=== PATIENT | female | born 1985 | race Caucasian/White ===

== ENCOUNTER 2018-01-14 02:07 | Emergency (ER) | payer OTHER ==
[~2018-01-14] VITALS: Ht 167.6 cm; Wt 71.8 kg
[~2018-01-14 02:07] MED LIST: BUPR150T6 PO; ETHI1TAB16 PO; MILK200C4 PO; MULT-785 PO; ONDA4TAB59 PO; SYN0.1T PO
[2018-01-14] MEDS ORDERED: ketorolac trometh. 30mg/ml inj. IV ONE (02:50)
[2018-01-14] MEDS ORDERED: normal saline 1000ML IV soln IVB ONE ×2 (02:50)
[2018-01-14] MEDS ORDERED: HYDROmorphone inj. 0.5 MG/0.5 ML DISP.SYRIN IV PRN (02:50)
[2018-01-14] MEDS ORDERED: ondansetron/PF 4mg/2ml inj IV ONE ×2 (02:50)
[2018-01-14 02:51] LABS: CLARITY,URINE CLOUDY (Clear); COLOR,URINE YELLOW (Yellow); GLUCOSE, URINE NEGATIVE (Neg); KETONES,URINE TRACE mg/dl (Neg); LEUKOCYTE ESTERASE ,URINE NEGATIVE (Neg); NITRITES, URINE NEGATIVE (Neg); OCCULT BLOOD,URINE LARGE (Neg); PROTEIN,URINE 100 mg/dl (Neg); URINE HCG NEGATIVE (NEG)
[2018-01-14 02:54] LABS: UA COLLECTION TYPE CLN CATCH MIDSTREAM
[2018-01-14 02:58] LABS: CAL OXALATE CRYSTALS FEW /HPF (NEGATIVE); RBC,URINE TNTC /HPF (0-2)
[2018-01-14 02:59] LABS: BACTERIA,URINE 3+ /HPF (Neg)
[2018-01-14 03:00] LABS: MUCUS STRANDS MANY /LPF (Neg); SQUAMOUS EPITHELIAL CELL,UR MANY /LPF (FEW)
[2018-01-14] MEDS ORDERED: morphine 4 MG/ML inj SYRINge IV ONE (03:05)
[2018-01-14 03:11] LABS: BASOPHILS % (AUTO) 0.3 % (0-1); EOSINOPHILS # (AUTO) 0.1 X10'3 (0-0.9); EOSINOPHILS % (AUTO) 0.8 % (0-6); HEMATOCRIT 40.7 % (35.0-45.0); HEMOGLOBIN 14.4 g/dl (12.0-16.0); LYMPHOCYTES # (AUTO) 1.7 X10'3 (1.1-4.8); LYMPHOCYTES % (AUTO) 20.9 % (21-51); MEAN CORPUSCULAR HEMOGLOBIN 30.9 PG (27.0-31.0); MEAN CORPUSCULAR HGB CONC 35.3 % (33.0-36.5); MEAN CORPUSCULAR VOLUME 87.6 FL (78-98); MEAN PLATELET VOLUME 7.7 FL (7.4-10.4); MONOCYTES # (AUTO) 0.4 X10'3 (0-0.9); MONOCYTES % (AUTO) 4.7 % (2-12); NEUTROPHILS # (AUTO) 5.8 X10'3 (1.8-7.7); NEUTROPHILS % (AUTO) 73.3 % (42-75); PLATELET COUNT 239 X10'3 (140-440); RED BLOOD COUNT 4.64 X10'6 (4.20-5.60); RED CELL DISTRIBUTION WIDTH 13.4 % (11.5-14.5)
[2018-01-14 03:24] LABS: ALANINE AMINOTRANSFERASE 22 U/L (12-78); ALBUMIN/GLOBULIN RATIO 1.2 (1.1-1.5); ALKALINE PHOSPHATASE 62 IU/L (46-116); ANION GAP 11 (8-16); ASPARTATE AMINO TRANSFERASE 12 U/L (10-37); BILIRUBIN,TOTAL 0.4 MG/DL (0.1-1.0); BLOOD UREA NITROGEN 10 MG/DL (7-18); BUN/CREATININE RATIO 9.8 (6.6-38.0); CALCIUM 9.3 MG/DL (8.5-10.1); CHLORIDE 105 MMOL/L (99-107); CREATININE 1.02 MG/DL (0.40-0.90); GLUCOSE 133 MG/DL (70-104); LIPASE 106 U/L (73-393); POTASSIUM 3.6 MMOL/L (3.5-5.1); SODIUM 143 MMOL/L (135-145); TOTAL CARBON DIOXIDE 26.6 MMOL/L (24-32); TOTAL PROTEIN 7.3 G/DL (6.4-8.2); eGFR 62 ML/MIN
[2018-01-14] MEDS ORDERED: HYDR-565 PO (03:44)
[2018-01-14] MEDS ORDERED: ONDA4TAB9 SL (03:44)
[2018-01-14] MEDS ORDERED: FLO0.4C PO (03:44)
[2018-01-14] MEDS ORDERED: KETO10TA2 PO (03:44)
[2018-01-14 04:10] VITALS: BP 141/112
== END 2018-01-14 04:12 | disposition home or self-care (01) ==
LOC: ER 02:07
DX: N13.2 Hydronephrosis with renal and ureteral calculous obstruction (principal); F15.10 Other stimulant abuse, uncomplicated; E11.9 Type 2 diabetes mellitus without complications; E03.9 Hypothyroidism, unspecified; Z88.0 Allergy status to penicillin; Z79.899 Other long term (current) drug therapy
CPT/HCPCS: 36415; 74176; 80053; 81001; 81025; 83690; 85025; 96361; 96374; 96375; 99285; J1885; J2270; J2405; J7030

== ENCOUNTER 2018-10-03 17:43 | Emergency (ER) | payer OTHER ==
[~2018-10-03] VITALS: Ht 165.1 cm; Wt 72.7 kg
[~2018-10-03 17:43] MED LIST changes: +KETO10TA2 PO
[2018-10-03] MEDS ORDERED: HYDROcodone/acetaminophen 10/325mg tab PO ONE (19:35)
[2018-10-03 19:44] LABS: CLARITY,URINE CLEAR (Clear); COLOR,URINE YELLOW (Yellow); GLUCOSE, URINE NEGATIVE (Neg); KETONES,URINE TRACE mg/dl (Neg); LEUKOCYTE ESTERASE ,URINE NEGATIVE (Neg); NITRITES, URINE NEGATIVE (Neg); OCCULT BLOOD,URINE NEGATIVE (Neg); PROTEIN,URINE NEGATIVE (Neg); UROBILINOGEN,URINE 0.2 E.U/dL (0.2-1.0)
[2018-10-03 19:48] LABS: URINE HCG NEGATIVE (NEG)
[2018-10-03 19:55] LABS: UA COLLECTION TYPE CLN CATCH MIDSTREAM
[2018-10-03 20:00] VITALS: BP 117/76
[2018-10-03] MEDS ORDERED: HYDR-3965 PO (21:30)
== END 2018-10-03 21:33 | disposition home or self-care (01) ==
LOC: ER 17:44
DX: R10.30 Lower abdominal pain, unspecified (principal); R51 Headache; R10.2 Pelvic and perineal pain; E11.9 Type 2 diabetes mellitus without complications; E03.9 Hypothyroidism, unspecified; F15.90 Other stimulant use, unspecified, uncomplicated; Z88.0 Allergy status to penicillin; Z79.899 Other long term (current) drug therapy; Z90.49 Acquired absence of other specified parts of digestive tract; Z87.440 Personal history of urinary (tract) infections
CPT/HCPCS: 76830; 76856; 81003; 81025; 99284

== ENCOUNTER 2019-08-26 10:10 | Emergency (ER) | payer OTHER ==
[~2019-08-26] VITALS: Ht 165.1 cm; Wt 77.3 kg
[2019-08-26] MEDS ORDERED: diphenhydrAMINE 25mg capsule PO ONE (10:15)
[2019-08-26] MEDS ORDERED: OLANZapine **IM** 10 mg inj. IM ONE (10:15)
[2019-08-26] MEDS ORDERED: LORazepam 2 mg/ml vial IM ONE (10:15)
--- NOTE | 2019-08-26 10:44 | NUR ---
MOTHER DAVID BRONSON [phone]
[2019-08-26] MEDS ORDERED: OLANZapine 2.5MG tablet PO STA ×2 (10:51→11:26)
[2019-08-26 10:54] LABS: CLARITY,URINE SLIGHTLY CLOUDY (Clear); COLOR,URINE YELLOW (Yellow); GLUCOSE, URINE NEGATIVE (Neg); KETONES,URINE TRACE mg/dl (Neg); LEUKOCYTE ESTERASE ,URINE NEGATIVE (Neg); NITRITES, URINE NEGATIVE (Neg); OCCULT BLOOD,URINE NEGATIVE (Neg); PROTEIN,URINE 30 mg/dl (Neg); URINE HCG NEGATIVE (NEG); UROBILINOGEN,URINE 0.2 E.U/dL (0.2-1.0)
[2019-08-26 10:54] LABS: BASOPHILS % (AUTO) 0.3 % (0-1); EOSINOPHILS % (AUTO) 0.3 % (0-6); HEMOGLOBIN 15.1 g/dl (12.0-16.0); LYMPHOCYTES # (AUTO) 1.4 X10'3 (1.1-4.8); LYMPHOCYTES % (AUTO) 21.7 % (21-51); MEAN CORPUSCULAR HEMOGLOBIN 30.7 PG (27.0-31.0); MEAN CORPUSCULAR HGB CONC 34.2 g/dL (33.0-36.5); MEAN CORPUSCULAR VOLUME 89.6 FL (78-98); MEAN PLATELET VOLUME 7.6 FL (7.4-10.4); MONOCYTES # (AUTO) 0.5 X10'3 (0-0.9); MONOCYTES % (AUTO) 7.8 % (2-12); NEUTROPHILS # (AUTO) 4.5 X10'3 (1.8-7.7); NEUTROPHILS % (AUTO) 69.9 % (42-75); PLATELET COUNT 298 X10'3 (140-440); RED BLOOD COUNT 4.91 X10'6 (4.20-5.60); RED CELL DISTRIBUTION WIDTH 13.7 % (11.5-14.5); WHITE BLOOD COUNT 6.4 X10'3 (4.5-11.0)
[2019-08-26] MEDS ORDERED: LORazepam 1 MG tablet PO ONE (10:55)
--- NOTE | 2019-08-26 10:55 | NUR ---
Mother and patient arguing in room. Mother was advised that if they argue again that her mother will be asked to leave
[2019-08-26 10:56] LABS: UA COLLECTION TYPE CLN CATCH MIDSTREAM
[2019-08-26 10:59] LABS: SQUAMOUS EPITHELIAL CELL,UR MANY /LPF (FEW)
[2019-08-26 11:00] LABS: BACTERIA,URINE 1+ /HPF (Neg); MUCUS STRANDS MANY /LPF (Neg); RBC,URINE 0-2 /HPF (0-2); WBC,URINE 0-4 /HPF (0-4)
--- NOTE | 2019-08-26 11:00 | NUR ---
PATIENTS BELONGINGS WHICH CONSISTED OF CLOTHES ONLY: SHORTS,SHIRT, BRA, UNDERWEAR AND SHOES GIVEN TO MOTHER
[2019-08-26 11:06] LABS: ALANINE AMINOTRANSFERASE 30 U/L (12-78); ALBUMIN 4.5 G/DL (3.4-5.0); ALBUMIN/GLOBULIN RATIO 1.2 (1.1-1.5); ALKALINE PHOSPHATASE 74 IU/L (46-116); ANION GAP 10 (8-16); ASPARTATE AMINO TRANSFERASE 21 U/L (10-37); BILIRUBIN,TOTAL 0.5 MG/DL (0.1-1.0); BLOOD UREA NITROGEN 17 MG/DL (7-18); CALCIUM 10.1 MG/DL (8.5-10.1); CHLORIDE 103 MMOL/L (99-107); GLUCOSE 127 MG/DL (70-104); POTASSIUM 3.7 MMOL/L (3.5-5.1); SODIUM 143 MMOL/L (135-145); TOTAL CARBON DIOXIDE 29.9 MMOL/L (24-32); TOTAL PROTEIN 8.3 G/DL (6.4-8.2); eGFR 63 ML/MIN
[2019-08-26 11:15] LABS: URINE AMPHETAMINE SCREEN POSITIVE (Neg); URINE BARBITUATE SCREEN NEGATIVE (Neg); URINE BENZODIAZEPINES SCREEN NEGATIVE (Neg); URINE CANNABINOID SCREEN NEGATIVE (Neg); URINE COCAINE SCREEN NEGATIVE (Neg); URINE METHADONE SCREEN NEGATIVE (Neg); URINE OPIATE SCREEN NEGATIVE (Neg); URINE PHENCYCLIDINE SCREEN NEGATIVE (Neg)
[2019-08-26 11:16] LABS: ETHANOL < 0.010 GM/DL (0.0-0.010)
--- NOTE | 2019-08-26 11:37 | NUR ---
pharmacist states they will cancel second order of zyprexa, given already by MICHELL Harper.
[2019-08-26] MEDS ORDERED: BREX2TAB PO (11:38)
[2019-08-26] MEDS ORDERED: METF-436 PO (11:39)
[2019-08-26] MEDS ORDERED: levoTHYROXINE 100mcg tablet PO STA (11:40)
[2019-08-26] MEDS ORDERED: DIVA-81 PO (11:40)
[2019-08-26] MEDS ORDERED: QUET400T5 PO (11:41)
[2019-08-26] MEDS ORDERED: QUET50TA15 PO (11:41)
[2019-08-26] MEDS ORDERED: CLON0.1T PO (11:41)
[2019-08-26] MEDS ORDERED: PRAZ2CAP2 PO (11:42)
[2019-08-26] MEDS ORDERED: DESV100T PO (11:50)
[2019-08-26] MEDS ORDERED: CHLO25CA10 PO ×2 (11:50→11:54)
[2019-08-26] MEDS ORDERED: LAMO200T2 PO (11:56)
[2019-08-26] MEDS ORDERED: LAMO100T89 PO (11:56)
[2019-08-26] MEDS ORDERED: DEXT30CA6 PO (11:57)
[2019-08-26] MEDS ORDERED: DEXT20TA6 PO (11:58)
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
--- NOTE | 2019-08-26 12:02 | NUR ---
SPOKE TO [facility] ON [address] AND CONFIRMED MEDICATIONS AND ENETERED THEM IN THE MEDICATION RECONCILIATION PATIENT GETS HER MEDICATIONS FROM [facility] ON [address] WHICH IS CLOSED
--- NOTE | 2019-08-26 12:04 | NUR ---
mother Nataliia [phone] Brother is Caesar [phone]
--- NOTE | 2019-08-26 12:07 | NUR ---
Pt is bipolar and has been a pt of Dr Yee 4 years. She was inpatient in for 4 months. She sees Samreen Naranjo at Dr. Yee. Recently finished intensive outpatient program in June.
--- NOTE | 2019-08-26 12:24 | NUR ---
medication list faxed to pharmacy after dr cannon signed it, primary rn elenita informed
[2019-08-26] MEDS ORDERED: CHLO5CAP3 PO (12:30)
[2019-08-26] MEDS ORDERED: [UNRECOGNIZED DRUG - OTHER] PO SCH (12:30)
[2019-08-26] MEDS ORDERED: DEXTROAMPHETAMINE PO SCH (12:30)
[2019-08-26] MEDS ORDERED: AMPHETAMINE PO SCH (12:30)
[2019-08-26] MEDS ORDERED: dextroamphetamine/amphetamine 10mg tablet PO SCH (12:43)
[2019-08-26] MEDS ORDERED: dextroamphetamine/amphetamine 5mg tablet PO SCH ×2 (12:51→13:00)
[2019-08-26] MEDS ORDERED: venlafaxine 25mg tablet PO SCH (13:00)
--- NOTE | 2019-08-26 13:17 | NUR ---
Pt is asleep and in no apparent distress. Respirations aare even and unlabored
[2019-08-26 14:37] VITALS: BP 132/86
[2019-08-26] MEDS ORDERED: chlordiazePOXIDE 5mg capsule PO SCH (20:00)
[2019-08-26] MEDS ORDERED: metFORMIN 500mg tablet PO SCH (20:00)
[2019-08-26] MEDS ORDERED: prazosin 1mg capsule PO SCH (21:00)
[2019-08-26] MEDS ORDERED: QUETIAPINE 50 MG TAB.SR.24H PO SCH (21:00)
[2019-08-26] MEDS ORDERED: cloNIDine 0.1 mg tablet PO SCH (21:00)
[2019-08-26] MEDS ORDERED: lamoTRIgine 100mg tablet PO SCH (21:00)
[2019-08-26] MEDS ORDERED: QUETIAPINE 200 MG TAB.SR.24H PO SCH (21:00)
[2019-08-26] MEDS ORDERED: divalproex sod 250mg ER (24-hour) tablet PO SCH (21:00)
[2019-08-27] MEDS ORDERED: levoTHYROXINE 100mcg tablet PO SCH (07:00)
[2019-08-27] MEDS ORDERED: brexpiprazole 0.25mg tablet PO SCH (08:00)
[2019-08-27] MEDS ORDERED: lamoTRIgine 100mg tablet PO SCH (08:00)
[2019-08-27] MEDS ORDERED: multivitamins, therapeutics tablet PO SCH (08:00)
[2019-08-27] MEDS ORDERED: dextroamphetam/amphetam ER cap 15 MG CAP.ER.24H PO SCH (08:00)
[2019-08-27] MEDS ORDERED: dextroamphetamine/amphetamine 5mg tablet PO SCH (12:30)
== END 2019-08-26 14:50 | disposition home or self-care (01) ==
LOC: ER 10:10
DX: F20.0 Paranoid schizophrenia (principal); F15.10 Other stimulant abuse, uncomplicated; E11.9 Type 2 diabetes mellitus without complications; E03.9 Hypothyroidism, unspecified; F41.9 Anxiety disorder, unspecified; F31.9 Bipolar disorder, unspecified; F17.200 Nicotine dependence, unspecified, uncomplicated; Z90.49 Acquired absence of other specified parts of digestive tract; Z88.0 Allergy status to penicillin; Z79.84 Long term (current) use of oral hypoglycemic drugs; Z79.899 Other long term (current) drug therapy
CPT/HCPCS: 36415; 80053; 80305; 80320; 81001; 81025; 82948; 84443; 85025; 99285; Q0163; 90654

== ENCOUNTER 2019-08-26 14:48 | Inpatient (IN) | payer OTHER ==
[~2019-08-26] VITALS: Ht 165.1 cm; Wt 76.7 kg
[~2019-08-26 14:48] MED LIST changes: +BREX2TAB PO; +CHLO25CA10 PO; +CHLO5CAP3 PO; +CLON0.1T PO; +DESV100T PO; +DEXT20TA6 PO; +DEXT30CA6 PO; +DIVA-81 PO; +LAMO100T PO; +LAMO200T2 PO; +METF-436 PO; +PRAZ2CAP2 PO; +QUET400T5 PO; +QUET50TA15 PO
[2019-08-26] MEDS ORDERED: mag hydrox/Alum hydrox/simeth 30ml oral suspension PO PRN (15:20)
[2019-08-26] MEDS ORDERED: magnesium hydroxide 30ml (MOM) UD suspension PO PRN (15:20)
[2019-08-26] MEDS: nicotine 21mg patch - 24 hr TD SCH (15:20)
[2019-08-26] MEDS ORDERED: NICOTINE POLACRILEX 2 MG LOZENGE MM PRN (15:20)
[2019-08-26] MEDS ORDERED: acetaminophen 325mg tablet PO PRN ×2 (15:20)
[2019-08-26] MEDS ORDERED: loperamide 2mg capsule PO PRN (15:20)
[2019-08-26] MEDS: hydrOXYzine 25 MG tablet PO PRN (15:42)
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
[2019-08-26 16:18] VITALS: BP 136/86
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
[2019-08-26 20:09] VITALS: BP 130/88
[2019-08-26] MEDS: LORazepam 1 MG tablet PO PRN (20:20)
[2019-08-26] MEDS ORDERED: quetiapine 100mg tablet PO ONE (20:20)
[2019-08-26] MEDS ORDERED: QUEtiapine 25mg tablet PO ONE (20:25)
[2019-08-26] MEDS: prazosin 1mg capsule PO SCH (20:26)
[2019-08-26] MEDS: venlafaxine 25mg tablet PO SCH (20:26)
[2019-08-26] MEDS: metFORMIN 500mg tablet PO SCH (20:27)
[2019-08-26] MEDS: lamoTRIgine 100mg tablet PO SCH (20:27)
[2019-08-26] MEDS: divalproex sod 250mg ER (24-hour) tablet PO SCH (20:27)
[2019-08-26] MEDS: QUETIAPINE 400 MG PO SCH (20:43)
[2019-08-26] MEDS: QUETIAPINE 50 MG PO SCH (20:44)
[2019-08-26] MEDS ORDERED: cloNIDine 0.1 mg tablet PO SCH (21:00)
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
[2019-08-27] MEDS: nicotine 21mg patch - 24 hr TD SCH (08:00)
[2019-08-27] MEDS: BREXPIPRAZOLE 0.5 MG PO SCH (08:00)
[2019-08-27] MEDS ORDERED: brexpiprazole 0.25mg tablet PO SCH (08:00)
[2019-08-27 08:09] VITALS: BP 99/57
[2019-08-27] MEDS: metFORMIN 500mg tablet PO SCH ×2 (08:15→20:23)
[2019-08-27] MEDS: multivitamins, therapeutics tablet PO SCH (08:15)
[2019-08-27] MEDS: lamoTRIgine 100mg tablet PO SCH ×2 (08:15→20:24)
[2019-08-27] MEDS: venlafaxine 25mg tablet PO SCH ×3 (08:16→20:25)
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
[2019-08-27 19:39] VITALS: BP 110/72
[2019-08-27] MEDS: divalproex sod 250mg ER (24-hour) tablet PO SCH (20:23)
[2019-08-27] MEDS: prazosin 1mg capsule PO SCH (20:25)
[2019-08-27] MEDS: QUETIAPINE 400 MG PO SCH (20:59)
[2019-08-27] MEDS: QUETIAPINE 50 MG PO SCH (21:00)
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
[2019-08-28] MEDS: levoTHYROXINE 25mcg tablet PO SCH (07:05)
[2019-08-28 07:40] LABS: CHOLESTEROL 124 MG/DL (0-200); HDL CHOLESTEROL 61 MG/DL (35-60); LDL CHOLESTEROL 57 MG/DL (50-100); TRIGLYCERIDES 45 MG/DL (20-135)
[2019-08-28] MEDS: multivitamins, therapeutics tablet PO SCH (07:49)
[2019-08-28] MEDS: lamoTRIgine 100mg tablet PO SCH ×2 (07:49→20:57)
[2019-08-28] MEDS: venlafaxine 25mg tablet PO SCH ×2 (07:49→13:05)
[2019-08-28] MEDS: metFORMIN 500mg tablet PO SCH ×2 (07:49→20:47)
[2019-08-28 07:52] VITALS: BP 95/60
[2019-08-28] MEDS: nicotine 21mg patch - 24 hr TD SCH (08:00)
[2019-08-28] MEDS: BREXPIPRAZOLE 0.5 MG PO SCH (08:00)
[2019-08-28] MEDS ORDERED: QUET300T19 PO (13:38)
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
[2019-08-28 19:45] VITALS: BP 110/73
[2019-08-28] MEDS: QUETIAPINE 400 MG PO SCH (20:45)
[2019-08-28] MEDS: prazosin 1mg capsule PO SCH (20:47)
[2019-08-28] MEDS: divalproex sod 250mg ER (24-hour) tablet PO SCH (21:05)
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
[2019-08-29] MEDS: levoTHYROXINE 25mcg tablet PO SCH (06:56)
[2019-08-29 07:30] VITALS: BP 100/62
[2019-08-29] MEDS: lamoTRIgine 100mg tablet PO SCH (07:55)
[2019-08-29] MEDS: metFORMIN 500mg tablet PO SCH ×2 (07:55→20:14)
[2019-08-29] MEDS: multivitamins, therapeutics tablet PO SCH (07:56)
[2019-08-29] MEDS: nicotine 21mg patch - 24 hr TD SCH (08:00)
[2019-08-29] MEDS ORDERED: BREXPIPRAZOLE 0.5 MG PO SCH (08:00)
[2019-08-29] MEDS ORDERED: divalproex sod 250mg ER (24-hour) tablet PO SCH ×2 (08:30→21:00)
[2019-08-29] MEDS: docusate sod 100mg capsule PO PRN (12:17)
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
[2019-08-29 20:11] VITALS: BP 131/81
[2019-08-29] MEDS: prazosin 1mg capsule PO SCH (20:14)
[2019-08-29] MEDS: lamoTRIgine 25mg tablet PO SCH (20:14)
[2019-08-29] MEDS: BREXPIPRAZOLE 0.5 MG PO SCH (20:17)
[2019-08-29] MEDS: QUETIAPINE 400 MG PO SCH (20:23)
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
[2019-08-30] MEDS: LORazepam 1 MG tablet PO PRN (00:23)
[2019-08-30] MEDS: metFORMIN 500mg tablet PO SCH ×2 (07:37→21:10)
[2019-08-30] MEDS: levoTHYROXINE 25mcg tablet PO SCH (07:37)
[2019-08-30] MEDS: multivitamins, therapeutics tablet PO SCH (07:37)
[2019-08-30] MEDS: lamoTRIgine 25mg tablet PO SCH ×2 (07:37→21:10)
[2019-08-30] MEDS: nicotine 21mg patch - 24 hr TD SCH (07:45)
[2019-08-30 07:57] VITALS: BP 98/57
[2019-08-30] MEDS: docusate sod 100mg capsule PO PRN (12:41)
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
[2019-08-30 20:00] VITALS: BP 122/72
[2019-08-30] MEDS: BREXPIPRAZOLE 0.5 MG PO SCH (21:11)
[2019-08-30] MEDS: prazosin 1mg capsule PO SCH (21:11)
[2019-08-31] MEDS: hydrOXYzine 25 MG tablet PO PRN (00:15)
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
[2019-08-31] MEDS: LORazepam 1 MG tablet PO PRN ×2 (00:50→18:55)
--- NOTE | 2019-08-31 02:17 | NUR ---
Nursing Note: Pt. awoke with a scream and c/o sleep paralysis, she refuses any intervention at this time and reports she would like to return back to sleep. Will continue to monitor.
[2019-08-31] MEDS: levoTHYROXINE 25mcg tablet PO SCH (07:36)
[2019-08-31] MEDS: metFORMIN 500mg tablet PO SCH ×2 (07:36→21:37)
[2019-08-31] MEDS: multivitamins, therapeutics tablet PO SCH (07:36)
[2019-08-31] MEDS: lamoTRIgine 25mg tablet PO SCH ×2 (07:37→21:36)
[2019-08-31 08:00] VITALS: BP 107/67
[2019-08-31] MEDS: nicotine 21mg patch - 24 hr TD SCH (08:00)
--- NOTE | 2019-08-31 11:25 | NUR ---
Initial: Patient's appetite appears to be fair. At times refuses meals and other times will eat 100% of the meal. When admitted, refused first six meals given, ate 100% of the next, then began alternating between refusals and eating the meal. Patient is also having snacks in between meals from the nourishment room, and will continue to be offered. Will continue to follow patient. Recommend: 1. continue carb controlled diet. 2. continue bowel care 3. weight per rx 4. encourage PO Intake Addendum: 08/31/19 at [address] Amended: Links added.
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
[2019-08-31 20:00] VITALS: BP 111/66
[2019-08-31] MEDS ORDERED: TYPE IN GENERIC & BRAND NAME OF PATIENT MED STRENGTH & FORM PO SCH (21:00)
[2019-08-31] MEDS: prazosin 1mg capsule PO SCH (21:36)
[2019-08-31] MEDS: BREXPIPRAZOLE 0.5 MG PO SCH (21:37)
[2019-08-31] MEDS: zolpidem 5mg tablet PO PRN (21:37)
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
[2019-09-01] MEDS: levoTHYROXINE 25mcg tablet PO SCH (07:37)
[2019-09-01] MEDS: lamoTRIgine 25mg tablet PO SCH ×2 (07:37→20:40)
[2019-09-01] MEDS: metFORMIN 500mg tablet PO SCH ×2 (07:37→20:40)
[2019-09-01] MEDS: multivitamins, therapeutics tablet PO SCH (07:37)
[2019-09-01] MEDS: nicotine 21mg patch - 24 hr TD SCH (08:00)
[2019-09-01 08:06] VITALS: BP 106/66
[2019-09-01] MEDS: LORazepam 1 MG tablet PO PRN ×2 (12:00→20:51)
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
[2019-09-01 19:47] VITALS: BP 124/74
[2019-09-01] MEDS: prazosin 1mg capsule PO SCH (20:40)
[2019-09-01] MEDS: zolpidem 5mg tablet PO PRN (20:40)
[2019-09-01] MEDS: BREXPIPRAZOLE 0.5 MG PO SCH (20:41)
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
[2019-09-02 07:00] VITALS: BP 103/67
[2019-09-02] MEDS: nicotine 21mg patch - 24 hr TD SCH ×2 (08:00→08:02)
[2019-09-02] MEDS: levoTHYROXINE 25mcg tablet PO SCH (08:02)
[2019-09-02] MEDS: lamoTRIgine 25mg tablet PO SCH ×2 (08:02→20:33)
[2019-09-02] MEDS: metFORMIN 500mg tablet PO SCH ×2 (08:02→20:32)
[2019-09-02] MEDS: multivitamins, therapeutics tablet PO SCH (08:02)
[2019-09-02] MEDS: LORazepam 1 MG tablet PO PRN ×2 (12:53→20:32)
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
[2019-09-02 19:00] VITALS: BP 131/89
[2019-09-02] MEDS: zolpidem 5mg tablet PO PRN (20:32)
[2019-09-02] MEDS: prazosin 1mg capsule PO SCH (20:32)
[2019-09-02] MEDS: BREXPIPRAZOLE 0.5 MG PO SCH (21:51)
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
[2019-09-03] MEDS: multivitamins, therapeutics tablet PO SCH (07:38)
[2019-09-03] MEDS: levoTHYROXINE 25mcg tablet PO SCH (07:38)
[2019-09-03] MEDS: lamoTRIgine 25mg tablet PO SCH ×2 (07:38→20:24)
[2019-09-03] MEDS: metFORMIN 500mg tablet PO SCH ×2 (07:38→20:23)
[2019-09-03 07:57] VITALS: BP 113/72
[2019-09-03] MEDS: nicotine 21mg patch - 24 hr TD SCH (08:00)
[2019-09-03] MEDS: LORazepam 1 MG tablet PO PRN ×2 (13:08→20:23)
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
[2019-09-03 19:11] VITALS: BP 119/90
[2019-09-03] MEDS: zolpidem 5mg tablet PO PRN (20:23)
[2019-09-03] MEDS: prazosin 1mg capsule PO SCH (20:24)
[2019-09-03] MEDS ORDERED: TYPE IN GENERIC & BRAND NAME OF PATIENT MED STRENGTH & FORM PO SCH (21:00)
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
[2019-09-04] MEDS: nicotine 21mg patch - 24 hr TD SCH ×2 (07:36→07:45)
[2019-09-04] MEDS: metFORMIN 500mg tablet PO SCH ×2 (07:36→20:25)
[2019-09-04] MEDS: multivitamins, therapeutics tablet PO SCH (07:36)
[2019-09-04] MEDS: lamoTRIgine 25mg tablet PO SCH ×2 (07:36→20:25)
[2019-09-04] MEDS: levoTHYROXINE 25mcg tablet PO SCH (07:40)
[2019-09-04 08:00] VITALS: BP 111/75
--- NOTE | 2019-09-04 14:44 | NUR ---
reassessment: Pt PO 75% avg regular diet meeting needs; does fluctuate w/ some 0% but mostly 75-100% meals. LBM 09/03. No nutrition concerns at this time. Will continue to monitor. Recommend: 1. continue carb controlled diet 2. continue bowel care 3. weight per rx 4. encourage PO Intake Addendum: 09/04/19 at [address] Amended: Links added.
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
[2019-09-04 19:43] VITALS: BP 155/95
[2019-09-04] MEDS ORDERED: BREX0.5T PO (19:43)
[2019-09-04] MEDS: LORazepam 1 MG tablet PO PRN (19:48)
[2019-09-04] MEDS: zolpidem 5mg tablet PO PRN (20:25)
[2019-09-04] MEDS: prazosin 1mg capsule PO SCH (20:25)
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
[2019-09-04] MEDS ORDERED: LORazepam 1 MG tablet PO PRN (22:00)
[2019-09-05 08:00] VITALS: BP 128/75
[2019-09-05] MEDS: nicotine 21mg patch - 24 hr TD SCH (08:00)
[2019-09-05] MEDS: levoTHYROXINE 25mcg tablet PO SCH (08:05)
[2019-09-05] MEDS: lamoTRIgine 25mg tablet PO SCH (08:05)
[2019-09-05] MEDS: metFORMIN 500mg tablet PO SCH (08:05)
[2019-09-05] MEDS: multivitamins, therapeutics tablet PO SCH (08:05)
--- NOTE | 2019-09-05 08:11 | NUR ---
SS met w/pt this am and engaged her in discussion to finalize dcp. per discussion, pt reports that she will be losing her apartment this week but that her mother is ok with her going to her mother's place and pt is agreeable to this. She reports that her mother is currently caring for her 11 y/o son and her dog and pt is eager to resume caring for her son. SS informed EMILIA Villareal of pt's final dcp. Plan: TERRI to coordinate aftercare with pt's outpt psychiatric provider, Dr. Yee office. Radha Hodge [facility]#[id number] Addendum: 09/05/19 at 0816 by Radha MURRAY Amended: Links added.
--- NOTE | 2019-09-05 08:52 | NUR ---
SS had t/c w/Dr. Yee' appointment desk, per t/c pt's scheduled to see Dr. Mckeon on 09/11 @ 2:30 PM. Med rec can be fax to [phone]. Radha Hodge [facility]#[id number] Addendum: 09/05/19 at 0854 by Radha MURRAY Amended: Links added.
[2019-09-05 11:40] VITALS: BP 146/107
[2019-09-05] MEDS ORDERED: ibuprofen 200mg tablet PO ONE (11:40)
[2019-09-05] MEDS ORDERED: LAMO25TA5 PO (13:53)
[2019-09-05] MEDS ORDERED: PRAZ1CAP5 PO (13:53)
[2019-09-05] MEDS ORDERED: LEVO25TA7 PO (13:53)
[2019-09-05] MEDS ORDERED: NICO-687 TD (13:53)
[2019-09-05] MEDS ORDERED: BREX0.5T PO (13:53)
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
--- NOTE | 2019-09-05 15:25 | NUR ---
DISCHARGE NOTE: Pt discharged home with mom, ambulated off the unit accompanied by PCT, all belongings returned, discharge instructions, follow up care, and Rx's explained to pt, pt expressed understanding. Pt given signed paper prescriptions to take to the pharmacy of her choice.
== END 2019-09-05 15:25 | disposition home or self-care (01) | DRG 885 ==
LOC: ADULT MH 14:54
PROVIDERS: ADMIT Psychiatry & Neurology Psychiatry; ATTEND Psychiatry & Neurology Psychiatry
DX: F25.0 Schizoaffective disorder, bipolar type (principal); F15.20 Other stimulant dependence, uncomplicated; F33.2 Major depressive disorder, recurrent severe without psychotic features; E03.9 Hypothyroidism, unspecified; E11.9 Type 2 diabetes mellitus without complications; F12.90 Cannabis use, unspecified, uncomplicated; M54.9 Dorsalgia, unspecified; F17.210 Nicotine dependence, cigarettes, uncomplicated; Z60.2 Problems related to living alone; G89.29 Other chronic pain; Z79.84 Long term (current) use of oral hypoglycemic drugs; Z79.890 Hormone replacement therapy; Z87.442 Personal history of urinary calculi; Z79.899 Other long term (current) drug therapy; Z88.0 Allergy status to penicillin
CPT/HCPCS: 36415; 80061; 82948; 83036; 87081; 90654; Z7610

== ENCOUNTER 2020-08-29 20:00 | Emergency (ER) | payer OTHER ==
[~2020-08-29] VITALS: Ht 165.1 cm; Wt 81.8 kg
[~2020-08-29 20:00] MED LIST changes: +BREX0.5T PO; -BREX2TAB PO; -BUPR150T6 PO; -CHLO25CA10 PO; -CHLO5CAP3 PO; -CLON0.1T PO; -DESV100T PO; -DEXT20TA6 PO; -DEXT30CA6 PO; -DIVA-81 PO; -ETHI1TAB16 PO; -KETO10TA2 PO; -LAMO100T PO; -LAMO200T2 PO; +LAMO25TA5 PO; +LEVO25TA7 PO; -MILK200C4 PO; +NICO-687 TD; -ONDA4TAB59 PO; +PRAZ1CAP5 PO; -PRAZ2CAP2 PO; -QUET400T5 PO; -QUET50TA15 PO; -SYN0.1T PO
--- NOTE | 2020-08-29 20:22 | NUR ---
PT RECEIVED TO ER OVERFLOW BED 22 FROM MAIN ER. PATIENT WAS ACCOMPANIED BY [employer] AFTER BEING PLACED ON A 5150. PT CHANGED INTO GREEN SCRUBS WITHOUT ISSUE. PT VERY TEARFUL AND UPSET REQUESTING MEDICATIONS TO HELP "PUT ME TO SLEEP".
[2020-08-29 20:39] LABS: CLARITY,URINE CLEAR (Clear); COLOR,URINE YELLOW (Yellow); GLUCOSE, URINE NEGATIVE (Neg); KETONES,URINE TRACE mg/dl (Neg); LEUKOCYTE ESTERASE ,URINE NEGATIVE (Neg); NITRITES, URINE NEGATIVE (Neg); OCCULT BLOOD,URINE LARGE (Neg); PH,URINE 5.5 (4.8-8.0); PROTEIN,URINE 30 mg/dl (Neg); URINE HCG NEGATIVE (NEG); UROBILINOGEN,URINE 0.2 E.U/dL (0.2-1.0)
[2020-08-29 20:44] LABS: UA COLLECTION TYPE CLN CATCH MIDSTREAM
[2020-08-29 20:47] LABS: BACTERIA,URINE 2+ /HPF (Neg); RBC,URINE 0-2 /HPF (0-2); SQUAMOUS EPITHELIAL CELL,UR MANY /LPF (FEW); WBC,URINE 0-4 /HPF (0-4)
[2020-08-29 20:51] LABS: BASOPHILS % (AUTO) 0.4 % (0-1); EOSINOPHILS % (AUTO) 0.1 % (0-6); HEMOGLOBIN 14.6 g/dl (12.0-16.0); LYMPHOCYTES # (AUTO) 1.4 X10'3 (1.1-4.8); LYMPHOCYTES % (AUTO) 13.6 % (21-51); MEAN CORPUSCULAR HEMOGLOBIN 30.1 PG (27.0-31.0); MEAN CORPUSCULAR VOLUME 88.3 FL (78-98); MONOCYTES # (AUTO) 0.3 X10'3 (0-0.9); NEUTROPHILS # (AUTO) 8.6 X10'3 (1.8-7.7); NEUTROPHILS % (AUTO) 82.9 % (42-75); PLATELET COUNT 336 X10'3 (140-440); RED BLOOD COUNT 4.87 X10'6 (4.20-5.60); RED CELL DISTRIBUTION WIDTH 15.9 % (11.5-14.5); WHITE BLOOD COUNT 10.4 X10'3 (4.5-11.0)
[2020-08-29 20:57] LABS: URINE AMPHETAMINE SCREEN NEGATIVE (Neg); URINE BARBITUATE SCREEN NEGATIVE (Neg); URINE BENZODIAZEPINES SCREEN NEGATIVE (Neg); URINE CANNABINOID SCREEN NEGATIVE (Neg); URINE COCAINE SCREEN NEGATIVE (Neg); URINE METHADONE SCREEN NEGATIVE (Neg); URINE OPIATE SCREEN NEGATIVE (Neg); URINE PHENCYCLIDINE SCREEN NEGATIVE (Neg)
[2020-08-29] MEDS ORDERED: QUETIAPINE 150 MG TAB.SR.24H PO SCH (21:00)
[2020-08-29] MEDS ORDERED: prazosin 1mg capsule PO SCH (21:00)
--- NOTE | 2020-08-29 21:00 | NUR ---
PT IS REPEATEDLY STATING "I JUST WANT TO GO HOME". PT ASKED STAFF IF SHE IS ALLOWED TO LEAVE AT ANYTIME AND PT WAS INFORMED OF THE [address] [facility] AND THAT SHE IS NOT ALLOWED TO LEAVE. PT CONTINUES TO TOSS AROUND IN BED AND HAS EVEN POUNDED HER FIST ON THE BED RAILS STATING OVER AND OVER THAT SHE WANTS TO GO HOME. PT ALSO RIPPED OFF HER WRISTBAND AND IS GRABBING AT HER ARMS. PT CONTINUES TO FIGIT IN HER BED AND TOSS AND TURN AROUND
[2020-08-29 21:07] LABS: ALANINE AMINOTRANSFERASE 22 U/L (12-78); ALBUMIN 4.5 G/DL (3.4-5.0); ALBUMIN/GLOBULIN RATIO 1.3 (1.1-1.5); ALKALINE PHOSPHATASE 82 IU/L (46-116); ANION GAP 13 (8-16); ASPARTATE AMINO TRANSFERASE 16 U/L (10-37); BILIRUBIN,TOTAL 0.2 MG/DL (0.1-1.0); BLOOD UREA NITROGEN 16 MG/DL (7-18); BUN/CREATININE RATIO 17.2 (6.6-38.0); CALCIUM 10.1 MG/DL (8.5-10.1); CHLORIDE 112 MMOL/L (99-107); CREATININE 0.93 MG/DL (0.40-0.90); GLUCOSE 143 MG/DL (70-104); POTASSIUM 3.5 MMOL/L (3.5-5.1); SODIUM 147 MMOL/L (135-145); TOTAL CARBON DIOXIDE 21.9 MMOL/L (24-32); TOTAL PROTEIN 8.1 G/DL (6.4-8.2); eGFR 68 ML/MIN
[2020-08-29] MEDS ORDERED: LIT300C PO (21:08)
[2020-08-29] MEDS ORDERED: QUET300T2 PO (21:08)
[2020-08-29] MEDS ORDERED: PRAZ2CAP2 PO (21:09)
[2020-08-29] MEDS ORDERED: PROP10TA10 PO (21:09)
--- NOTE | 2020-08-29 21:10 | NUR ---
REVIEWED PT'S MED REC WITH HER AND PT STATES THAT SHE HAS BEEN CUTTING HER SEROQUEL DOWN HERSELF AND IS ONLY TAKING AROUND 100MG AT NIGHT BUT IF SHE HAS A BAD NIGHT SHE WILL SOMETIMES TAKE 300MG. PT ALSO STATES SHE HAS RX FOR PROPRANOLOL & PRAZOSIN BUT SHE HASN'T BEEN TAKING THOSE AT ALL
--- NOTE | 2020-08-29 21:21 | NUR ---
PT CONTINUES TO EXPRESS A DESIRE TO LEAVE AND THEN ASKED IF SHE CAN SMOKE OR DO ANYTHING. PT WAS INFORMED THAT SHE IS NOT ALLOWED TO GO OFF THE UNIT AT ALL. PT THEN ASKED IF SHE IS ALLOWED TO WALK AROUND TO WHICH SHE WAS TOLD SHE IS ONLY ALLOWED TO WALK ON THE UNIT WHERE SHE IS WITHIN EYESIGHT. PT IMMEDIATELY BEGAN WALKING AROUND THE UNIT AND WAS HEARD TRYING TO OPEN A LOCKED DOOR HANDLE. PT THEN CONTINUED TO WALK AROUND IN CIRCLES UNTIL SHE RETURNED TO HER BED AND ASKED FOR WATER.
[2020-08-29 21:23] LABS: ACETAMINOPHEN < 2.0 UG/ML (10-30)
[2020-08-29] MEDS ORDERED: LORazepam 2 mg/ml vial IM ONE (21:30)
[2020-08-29] MEDS ORDERED: diphenhydrAMINE 50 mg/ml inj IM ONE (21:30)
[2020-08-29] MEDS ORDERED: propranolol 10mg tablet PO PRN (21:50)
--- NOTE | 2020-08-29 22:15 | NUR ---
Pt continues to appear anxious and restless. Pt up pacing around the unit again. Pt took her medications without issue but did ask what the doses were that she was being given. Pt paced again for a few minutes then returned to sitting up on her bed. Pt asking questions like how long she will be here.
[2020-08-29] MEDS: QUEtiapine 25mg tablet PO SCH (22:17)
[2020-08-29] MEDS: lithium carbonate 300mg SR tablet (LithoBID) PO SCH (22:17)
--- NOTE | 2020-08-29 23:31 | NUR ---
Pt is now lying in bed and appears to be resting comfortably. Pt does not appear to be anxious at this time. No s/s of distress noted.
--- NOTE | 2020-08-29 23:37 | NUR ---
Packet sent to [facility]
--- NOTE | 2020-08-30 00:15 | NUR ---
Pt is lying in bed with the blanket pulled up to her head. Pt appears to be resting comfortably. No s/s of distress noted
--- NOTE | 2020-08-30 01:06 | NUR ---
Pt is currently lying on her side in bed and appears to be resting comfortably. No apparent s/s of distress noted.
--- NOTE | 2020-08-30 02:00 | NUR ---
Pt lying in bed appears to be resting comfortably. No apparent s/s of distress noted.
--- NOTE | 2020-08-30 02:48 | NUR ---
Pt lying in bed appears to be resting comfortably. No apparent s/s of distress noted.
--- NOTE | 2020-08-30 03:51 | NUR ---
Pt lying in bed appears to be resting comfortably. No apparent s/s of distress noted.
--- NOTE | 2020-08-30 04:45 | NUR ---
Pt lying in bed appears to be resting comfortably. No apparent s/s of distress noted.
--- NOTE | 2020-08-30 05:12 | NUR ---
Pt lying in bed appears to be resting comfortably. No apparent s/s of distress noted.
[2020-08-30 05:39] VITALS: BP 103/70
--- NOTE | 2020-08-30 05:47 | NUR ---
Pt woke up after VS taken and asked "why am I still here". Pt was reminded that she is currently on a 5150 hold by [employer] and will remain here until she is evaluated by [facility] for possible placement if needed. Pt then calmly ambulated to the restroom and back to her bed after.
--- NOTE | 2020-08-30 07:20 | NUR ---
pt sleeping in bed ,rr wnl.will cont to monitor.
--- NOTE | 2020-08-30 07:28 | NUR ---
recevied called by pt mother valentin ,as per mother pt was in [facility] behavioural unit on jul 09 week,pt was tampering her meds off and her mother said "I questioned her ,because of her behaviour".mother said to call her for any question on [phone] and also asking if she is listed to speak to the pt ,instructed when pt will wake up will ask her.mother verbalized understanding.
--- NOTE | 2020-08-30 07:58 | NUR ---
pt appaer sleeping at this time head turned on her rgt side,rr regular and wnl,will cont to monitor.
--- NOTE | 2020-08-30 08:16 | NUR ---
pt up in bed eating her food ,asked the pt how she is doing ,pt noded her head ,came closer to pt bedside and told that her mother valentin called if its okay for her to call you with your permission,pt said i don't want her to know am here and pt started sobbing in tears.pt asking about shower instructed we can give wipes if she wants ,pt agrees to it.will provide it to pt.
[2020-08-30] MEDS: QUEtiapine 25mg tablet PO SCH (08:26)
[2020-08-30] MEDS: lithium carbonate 300mg SR tablet (LithoBID) PO SCH (08:26)
--- NOTE | 2020-08-30 09:30 | NUR ---
PT REPORTS THAT SHE DOES NOT WANT TO BE HERE, SHE JUST WANTS TO GO HOME.
--- NOTE | 2020-08-30 10:50 | NUR ---
EVAL AT BEDSIDE EVAL THE PT AT THIS TIME,WILL CONT TO MONITOR.
--- NOTE | 2020-08-30 11:00 | NUR ---
MICHAEL SOUTH NOTIFIED ME THAT PT MOM IS GOING TO [facility]IDENTIAL MONITOR PT AROUND 1430 , [facility]C HOME WHEN MOM ARRIVES DR SCHULER IS AWARE.
--- NOTE | 2020-08-30 11:48 | NUR ---
PT RESTING LAYIN ON HER LEFT SIDE, RESPIRATIONS EVEN AND UNLABORED. NO DISTRESS NOTED AT THIS TIME.
--- NOTE | 2020-08-30 12:09 | NUR ---
PT SLEEPING IN BED IN HER RGT LATERAL POSITION ,NO DISTRESS NOTED ,RR EVEN AND NONLABORED.
--- NOTE | 2020-08-30 12:45 | NUR ---
PT WOKE UP FROM SLEEP AND STATED THAT SHE IS HUNGRY AND WANT SOME SNACKS TO EAT .ORNAGE JUICE AND SALTINE CRACKER GIVEN TO THE PT ,PT IS HAPPY THE FACT SHE IS GOING HOME .
--- NOTE | 2020-08-30 12:55 | NUR ---
PT LUNCH ARRIVED ,PT IS GLAD THAT SHE CAN EAT LUNCH BEFORE SHE GETS D/C ,PT EATING HER FOOD AT THIS TIME .
== END 2020-08-30 14:30 | disposition home or self-care (01) ==
LOC: ER 20:00
DX: R45.851 Suicidal ideations (principal); E11.9 Type 2 diabetes mellitus without complications; E03.9 Hypothyroidism, unspecified; F31.9 Bipolar disorder, unspecified; F20.9 Schizophrenia, unspecified; F10.10 Alcohol abuse, uncomplicated; F15.90 Other stimulant use, unspecified, uncomplicated; R51.9 Headache, unspecified; M54.2 Cervicalgia; Z90.49 Acquired absence of other specified parts of digestive tract; Z56.0 Unemployment, unspecified; Z88.0 Allergy status to penicillin; Z79.899 Other long term (current) drug therapy; V99.XXXA Unspecified transport accident, initial encounter; Y93.89 Activity, other specified; Y92.89 Other specified places as the place of occurrence of the external cause; Y99.8 Other external cause status
CPT/HCPCS: 36415; 70450; 72125; 80053; 80305; 80320; 80329; 81001; 81025; 84443; 85025; 96372; 99285; J1200; J2060

== ENCOUNTER 2022-03-26 17:46 | Emergency (ER) | payer OTHER, MEDICAID ==
[~2022-03-26] VITALS: Ht 165.1 cm; Wt 177.0 kg
[~2022-03-26 17:46] MED LIST changes: -BREX0.5T PO; -LAMO25TA5 PO; -LEVO25TA7 PO; +LIT300C PO; -METF-436 PO; -MULT-785 PO; -NICO-687 TD; -PRAZ1CAP5 PO; +PRAZ2CAP2 PO; +PROP10TA10 PO; +QUET300T2 PO
[2022-03-26 19:18] VITALS: BP 133/90
[2022-03-26 19:39] LABS: BASOPHILS % (AUTO) 0.4 % (0-1); EOSINOPHILS # (AUTO) 0.1 X10'3 (0-0.9); EOSINOPHILS % (AUTO) 1.5 % (0-6); HEMATOCRIT 41.5 % (35.0-45.0); HEMOGLOBIN 13.8 g/dl (12.0-16.0); LYMPHOCYTES # (AUTO) 1.9 X10'3 (1.1-4.8); LYMPHOCYTES % (AUTO) 32.2 % (21-51); MEAN CORPUSCULAR HEMOGLOBIN 29.3 PG (27.0-31.0); MEAN CORPUSCULAR HGB CONC 33.2 g/dL (33.0-36.5); MEAN CORPUSCULAR VOLUME 88.1 FL (78-98); MONOCYTES # (AUTO) 0.3 X10'3 (0-0.9); MONOCYTES % (AUTO) 5.3 % (2-12); NEUTROPHILS # (AUTO) 3.6 X10'3 (1.8-7.7); NEUTROPHILS % (AUTO) 60.6 % (42-75); PLATELET COUNT 310 X10'3 (140-440); RED BLOOD COUNT 4.71 X10'6 (4.20-5.60); RED CELL DISTRIBUTION WIDTH 13.6 % (11.5-14.5)
[2022-03-26 19:52] LABS: ALANINE AMINOTRANSFERASE 17 U/L (12-78); ALBUMIN 4.3 G/DL (3.4-5.0); ALBUMIN/GLOBULIN RATIO 1.5 (1.1-1.5); ALKALINE PHOSPHATASE 64 IU/L (46-116); ANION GAP 7 (8-16); ASPARTATE AMINO TRANSFERASE 13 U/L (10-37); BILIRUBIN,TOTAL 0.3 MG/DL (0.1-1.0); BLOOD UREA NITROGEN 13 MG/DL (7-18); BUN/CREATININE RATIO 17.1 (6.6-38.0); CHLORIDE 103 MMOL/L (99-107); CREATININE 0.76 MG/DL (0.40-0.90); GLUCOSE 113 MG/DL (70-104); POTASSIUM 3.5 MMOL/L (3.5-5.1); SODIUM 142 MMOL/L (135-145); TOTAL CARBON DIOXIDE 31.9 MMOL/L (24-32); TOTAL PROTEIN 7.2 G/DL (6.4-8.2); eGFR 85 ML/MIN
== END 2022-03-26 21:52 | disposition left against medical advice (07) ==
LOC: ER 19:23
DX: R06.02 Shortness of breath (principal); Z53.21 Procedure and treatment not carried out due to patient leaving prior to being seen by health care provider
CPT/HCPCS: 36415; 71045; 80053; 83880; 84484; 85025

== ENCOUNTER 2022-09-06 06:11 | Emergency (ER) | payer OTHER, MEDICAID ==
[~2022-09-06] VITALS: Ht 165.1 cm; Wt 84.0 kg
[2022-09-06 06:28] VITALS: BP 145/96
[2022-09-06] MEDS ORDERED: morphine IR (immed. release) 30mg tablet PO STA (07:24)
== END 2022-09-06 08:31 | disposition home or self-care (01) ==
LOC: ER 06:12
DX: M54.50 Low back pain, unspecified (principal); E11.9 Type 2 diabetes mellitus without complications; E03.9 Hypothyroidism, unspecified; G89.29 Other chronic pain; F32.A Depression, unspecified; F20.9 Schizophrenia, unspecified; F15.90 Other stimulant use, unspecified, uncomplicated; F19.90 Other psychoactive substance use, unspecified, uncomplicated; Z87.442 Personal history of urinary calculi; Z90.89 Acquired absence of other organs; Z72.89 Other problems related to lifestyle; Z60.2 Problems related to living alone; Z56.0 Unemployment, unspecified; Z88.0 Allergy status to penicillin; Z79.899 Other long term (current) drug therapy
CPT/HCPCS: 99284

== ENCOUNTER 2023-10-28 23:22 | Inpatient (IN) | payer MEDICAID, OTHER ==
[~2023-10-28] VITALS: Ht 165.1 cm; Wt 87.0 kg
[2023-10-29 00:08] LABS: BASOPHILS % (AUTO) 0.2 % (0-1); EOSINOPHILS # (AUTO) 0.1 X10'3 (0-0.9); EOSINOPHILS % (AUTO) 1.4 % (0-6); HEMATOCRIT 40.7 % (35.0-45.0); HEMOGLOBIN 13.9 g/dl (12.0-16.0); LYMPHOCYTES # (AUTO) 1.7 X10'3 (1.1-4.8); LYMPHOCYTES % (AUTO) 39.4 % (21-51); MEAN CORPUSCULAR HEMOGLOBIN 31.5 PG (27.0-31.0); MEAN CORPUSCULAR HGB CONC 34.2 g/dL (33.0-36.5); MEAN CORPUSCULAR VOLUME 91.9 FL (78-98); MEAN PLATELET VOLUME 7.8 FL (7.4-10.4); MONOCYTES # (AUTO) 0.3 X10'3 (0-0.9); NEUTROPHILS # (AUTO) 2.2 X10'3 (1.8-7.7); PLATELET COUNT 256 X10'3 (140-440); RED BLOOD COUNT 4.43 X10'6 (4.20-5.60); RED CELL DISTRIBUTION WIDTH 13.3 % (11.5-14.5); WHITE BLOOD COUNT 4.4 X10'3 (4.5-11.0)
[2023-10-29 00:20] LABS: ALANINE AMINOTRANSFERASE 57 U/L (12-78); ALBUMIN/GLOBULIN RATIO 1.1 (1.1-1.5); ALKALINE PHOSPHATASE 76 IU/L (46-116); ANION GAP 9 (8-16); ASPARTATE AMINO TRANSFERASE 30 U/L (10-37); BILIRUBIN,TOTAL 0.3 MG/DL (0.1-1.0); BLOOD UREA NITROGEN 10 MG/DL (7-18); BUN/CREATININE RATIO 12.3 (10.0-20.0); CALCIUM 8.8 MG/DL (8.5-10.1); CHLORIDE 101 MMOL/L (99-107); CREATININE 0.81 MG/DL (0.40-0.90); GLUCOSE 163 MG/DL (70-104); POTASSIUM 3.2 MMOL/L (3.5-5.1); SODIUM 136 MMOL/L (135-145); TOTAL CARBON DIOXIDE 26.2 MMOL/L (24-32); TOTAL PROTEIN 7.6 G/DL (6.4-8.2); eCRCL 83 ML/MIN; eGFR 78 ML/MIN
[2023-10-29 00:29] LABS: ETHANOL 214 MG/DL (<10); SALICYLATE 1.3 MG/DL (4.0-20.0); THYROID STIMULATING HORMONE 5.78 ulU/ml (0.34-4.50)
[2023-10-29] MEDS ORDERED: ketamine 10mg/ml 20ml inj vial IM ONE (00:35)
[2023-10-29] MEDS ORDERED: CefTRIAXone 1000mg IM Kit (w/lidocaine diluent) IM ONE (00:40)
[2023-10-29] MEDS ORDERED: TETanus/Pertussis (Acell)/Diphther VAC/PF (Tdap-Adult) 0.5ml syringe IMVAC ONE (00:40)
[2023-10-29] MEDS ORDERED: bacitracin 15gm ointment TP ONE (00:40)
[2023-10-29] MEDS ORDERED: ondansetron 4mg rapidly disintigrating tab PO ONE (01:05)
[2023-10-29] MEDS ORDERED: ondansetron/PF 4mg/2ml inj IV ONE (01:10)
[2023-10-29] MEDS ORDERED: ketamine 50 mg/ml 10ml vial IM ONE (01:10)
[2023-10-29] MEDS ORDERED: ketamine 10mg/ml 20ml inj vial IV ONE ×2 (01:10→02:25)
[2023-10-29] MEDS ORDERED: normal saline 1000ml 1,000 ML IV ONE (01:10)
[2023-10-29] MEDS ORDERED: clindamycin 600mg/D5W 50ml 50 ML IV ONE (01:30)
[2023-10-29 01:33] VITALS: PULSE 119; RESP 18; O2SAT 98
[2023-10-29] MEDS ORDERED: potassium Cl 20 mEq SR tablet PO STA (01:55)
[2023-10-29 02:43] LABS: URINE HCG NEGATIVE (NEG)
[2023-10-29 02:49] LABS: BILIRUBIN,URINE NEGATIVE (Neg); CLARITY,URINE CLEAR (Clear); COLOR,URINE STRAW (Yellow); GLUCOSE, URINE NEGATIVE (Neg); KETONES,URINE NEGATIVE (Neg); LEUKOCYTE ESTERASE ,URINE NEGATIVE (Neg); NITRITES, URINE NEGATIVE (Neg); OCCULT BLOOD,URINE TRACE-INTACT (Neg); PROTEIN,URINE NEGATIVE (Neg); UROBILINOGEN,URINE 0.2 E.U/dL (0.2-1.0)
[2023-10-29 02:52] LABS: URINE AMPHETAMINE SCREEN NEGATIVE (Neg); URINE BARBITUATE SCREEN NEGATIVE (Neg); URINE BENZODIAZEPINES SCREEN NEGATIVE (Neg); URINE CANNABINOID SCREEN NEGATIVE (Neg); URINE COCAINE SCREEN NEGATIVE (Neg); URINE METHADONE SCREEN NEGATIVE (Neg); URINE OPIATE SCREEN NEGATIVE (Neg); URINE PHENCYCLIDINE SCREEN NEGATIVE (Neg)
[2023-10-29 02:54] LABS: UA COLLECTION TYPE NON-SPECIFIED
[2023-10-29 02:56] LABS: MUCUS STRANDS NONE SEEN /LPF (Neg); SQUAMOUS EPITHELIAL CELL,UR FEW /LPF (FEW)
[2023-10-29 03:00] LABS: BACTERIA,URINE FEW /HPF (Neg); RBC,URINE 0-2 /HPF (0-2); WBC,URINE 0-4 /HPF (0-4)
[2023-10-29] MEDS ORDERED: acetaminophen 325mg tablet PO ONE (08:00)
[2023-10-29] MEDS ORDERED: propranolol 10mg tablet PO ONE (11:30)
[2023-10-29] MEDS ORDERED: LAMO200T10 PO (16:52)
[2023-10-29] MEDS ORDERED: METF-436 PO (16:52)
[2023-10-29] MEDS ORDERED: NICO-687 TOP (16:52)
[2023-10-29] MEDS ORDERED: CLON0.5T5 PO (16:52)
[2023-10-29] MEDS ORDERED: NAPR-996 PO (16:52)
[2023-10-29] MEDS ORDERED: prazosin 1mg capsule PO PRN (18:10)
[2023-10-29] MEDS ORDERED: QUET25TA36 PO (18:13)
[2023-10-29] MEDS ORDERED: HYDROcodone/acetaminophen 5mg/325mg tablet PO ONE (19:20)
[2023-10-29] MEDS: lamoTRIgine 100mg tablet PO SCH (19:54)
[2023-10-29] MEDS ORDERED: QUEtiapine 25mg tablet PO SCH (21:00)
[2023-10-29 21:39] VITALS: BP 144/93; PULSE 95; RESP 16; TEMP 97.5; O2SAT 100
[2023-10-29] MEDS ORDERED: magnesium hydroxide 30ml (MOM) UD suspension PO PRN (22:45)
[2023-10-29] MEDS ORDERED: acetaminophen 325mg tablet PO PRN (22:45)
[2023-10-29] MEDS ORDERED: loperamide 2mg capsule PO PRN (22:45)
[2023-10-29] MEDS ORDERED: mag hydrox/Alum hydrox/simeth 30ml oral suspension PO PRN (22:45)
[2023-10-29] MEDS: naproxen 500mg tablet PO PRN (23:40)
[2023-10-30 07:00] VITALS: RESP 12; O2SAT 98
[2023-10-30 08:00] VITALS: BP 138/83; PULSE 75; RESP 12; TEMP 98.2; O2SAT 98
[2023-10-30] MEDS: nicotine 21mg patch - 24 hr TD SCH (08:00)
[2023-10-30] MEDS: lamoTRIgine 100mg tablet PO SCH ×2 (09:51→20:15)
[2023-10-30] MEDS: propranolol 10mg tablet PO PRN ×2 (09:54→20:16)
[2023-10-30 12:09] LABS: HEMOGLOBIN A1C 5.9 % (4.5-6.2)
[2023-10-30 12:26] LABS: ALANINE AMINOTRANSFERASE 37 U/L (12-78); ALBUMIN 3.7 G/DL (3.4-5.0); ALBUMIN/GLOBULIN RATIO 1.1 (1.1-1.5); ALKALINE PHOSPHATASE 87 IU/L (46-116); ANION GAP 8 (8-16); ASPARTATE AMINO TRANSFERASE 31 U/L (10-37); BILIRUBIN,TOTAL 0.5 MG/DL (0.1-1.0); BLOOD UREA NITROGEN 7 MG/DL (7-18); BUN/CREATININE RATIO 10.3 (10.0-20.0); CALCIUM 9.1 MG/DL (8.5-10.1); CHLORIDE 102 MMOL/L (99-107); CHOL/HDL RATIO 1.7 (0.00-4.99); CHOLESTEROL 139 MG/DL (0-200); CREATININE 0.68 MG/DL (0.40-0.90); GLUCOSE 145 MG/DL (70-104); HDL CHOLESTEROL 83 MG/DL (35-60); LDL CHOLESTEROL 38 MG/DL (50-100); POTASSIUM 3.8 MMOL/L (3.5-5.1); SODIUM 137 MMOL/L (135-145); THYROID STIMULATING HORMONE 1.82 ulU/ml (0.34-4.50); TOTAL CARBON DIOXIDE 26.9 MMOL/L (24-32); TOTAL PROTEIN 7.1 G/DL (6.4-8.2); TRIGLYCERIDES 77 MG/DL (20-135); eCRCL 99 ML/MIN; eGFR > 90 ML/MIN
[2023-10-30] MEDS ORDERED: QUEtiapine 25mg tablet PO PRN (15:30)
[2023-10-30] MEDS ORDERED: CARIPRAZINE 1.5 MG CAPSULE PO ONE (16:00)
[2023-10-30] MEDS ORDERED: cloNIDine 0.1 mg tablet PO ONE (17:00)
[2023-10-30 19:25] VITALS: BP 168/102; PULSE 83; RESP 14; TEMP 97.9; O2SAT 100
[2023-10-30] MEDS: naproxen 500mg tablet PO PRN (20:15)
[2023-10-30] MEDS: prazosin 1mg capsule PO SCH (20:16)
[2023-10-30 21:29] VITALS: BP 135/86; RESP 16
[2023-10-31 07:00] VITALS: RESP 14; O2SAT 97
[2023-10-31 08:00] VITALS: BP 115/65; PULSE 71; RESP 14; TEMP 98.1; O2SAT 97
[2023-10-31] MEDS: nicotine 21mg patch - 24 hr TD SCH (08:00)
[2023-10-31] MEDS: lamoTRIgine 100mg tablet PO SCH ×2 (08:51→20:50)
[2023-10-31] MEDS: CARIPRAZINE 1.5 MG CAPSULE PO SCH (08:51)
[2023-10-31] MEDS: propranolol 10mg tablet PO PRN (08:57)
[2023-10-31] MEDS: acetaminophen 325mg tablet PO PRN ×2 (17:30→21:01)
[2023-10-31 19:00] VITALS: RESP 18; O2SAT 97
[2023-10-31 20:00] VITALS: BP 140/85; PULSE 69; RESP 14; TEMP 98.7; O2SAT 99
[2023-10-31] MEDS: prazosin 1mg capsule PO SCH (20:49)
[2023-10-31] MEDS: clonazePAM 0.5mg tablet PO PRN (21:02)
[2023-11-01] MEDS: lamoTRIgine 100mg tablet PO SCH ×2 (08:03→20:23)
[2023-11-01] MEDS: CARIPRAZINE 1.5 MG CAPSULE PO SCH (08:03)
[2023-11-01 08:10] VITALS: BP 133/86; PULSE 95; RESP 16; TEMP 98.9; O2SAT 97
[2023-11-01] MEDS: acetaminophen 325mg tablet PO PRN (13:08)
[2023-11-01 19:00] VITALS: RESP 15; O2SAT 98
[2023-11-01 19:48] VITALS: BP 170/101; PULSE 77; RESP 15; TEMP 97.4; O2SAT 98
[2023-11-01] MEDS: prazosin 1mg capsule PO SCH (20:20)
[2023-11-01] MEDS: clonazePAM 0.5mg tablet PO PRN (20:20)
[2023-11-02] MEDS: acetaminophen 325mg tablet PO PRN ×2 (02:44→19:13)
[2023-11-02 07:00] VITALS: RESP 16; O2SAT 97
[2023-11-02 08:00] VITALS: BP 139/83; PULSE 83; RESP 16; TEMP 98.7; O2SAT 97
[2023-11-02] MEDS: CARIPRAZINE 1.5 MG CAPSULE PO SCH (08:02)
[2023-11-02] MEDS: lamoTRIgine 100mg tablet PO SCH ×2 (08:02→19:11)
[2023-11-02] MEDS: clonazePAM 0.5mg tablet PO PRN (19:11)
[2023-11-02 19:15] VITALS: RESP 18; O2SAT 99
[2023-11-02 19:46] VITALS: BP 148/98; PULSE 74; RESP 18; TEMP 97.8; O2SAT 99
[2023-11-02] MEDS: prazosin 1mg capsule PO SCH (19:57)
[2023-11-03 07:00] VITALS: RESP 12; O2SAT 99
[2023-11-03] MEDS: lamoTRIgine 100mg tablet PO SCH (07:57)
[2023-11-03] MEDS: CARIPRAZINE 1.5 MG CAPSULE PO SCH (07:58)
[2023-11-03 08:00] VITALS: BP 138/86; PULSE 87; RESP 12; TEMP 98.2; O2SAT 99
[2023-11-03] MEDS: acetaminophen 325mg tablet PO PRN (08:07)
[2023-11-03] MEDS ORDERED: LAMO200T10 PO (11:16)
[2023-11-03] MEDS ORDERED: CARI1.5C PO (11:16)
[2023-11-03] MEDS ORDERED: NICO-687 TOP (11:16)
== END 2023-11-03 12:13 | disposition home or self-care (01) | DRG 751 ==
LOC: ER 23:23 → ADULT MH 10-29 17:59
PROVIDERS: ADMIT Psychiatry & Neurology Psychiatry; ATTEND Psychiatry & Neurology Psychiatry
PROC: 0HQEXZZ Repair Left Lower Arm Skin, External Approach (ICD-10-PCS; principal; 2023-10-28)
DX: F33.9 Major depressive disorder, recurrent, unspecified (principal); R45.851 Suicidal ideations; E11.9 Type 2 diabetes mellitus without complications; E03.9 Hypothyroidism, unspecified; Z20.822 Contact with and (suspected) exposure to COVID-19; F10.20 Alcohol dependence, uncomplicated; F15.90 Other stimulant use, unspecified, uncomplicated; F17.210 Nicotine dependence, cigarettes, uncomplicated; F20.9 Schizophrenia, unspecified; F17.290 Nicotine dependence, other tobacco product, uncomplicated; F41.0 Panic disorder [episodic paroxysmal anxiety]; F42.9 Obsessive-compulsive disorder, unspecified; N95.1 Menopausal and female climacteric states; F43.10 Post-traumatic stress disorder, unspecified; X78.1XXA Intentional self-harm by knife, initial encounter; S41.112A Laceration without foreign body of left upper arm, initial encounter; I10 Essential (primary) hypertension; X58.XXXA Exposure to other specified factors, initial encounter; Y93.89 Activity, other specified; Y92.89 Other specified places as the place of occurrence of the external cause; Y99.8 Other external cause status; Z56.0 Unemployment, unspecified; Z63.4 Disappearance and death of family member; Z79.84 Long term (current) use of oral hypoglycemic drugs; Z87.442 Personal history of urinary calculi; Z88.0 Allergy status to penicillin; Z90.49 Acquired absence of other specified parts of digestive tract; Z98.82 Breast implant status
CPT/HCPCS: 36415; 80053; 80061; 80305; 80320; 80329; 81001; 81025; 82948; 83036; 84439; 84443; 85025; 87081; 87811; 90715; 99285; A4620; A6212; A6223; A6258; A6446; A6449; J2405; J3490; J7030

== ENCOUNTER 2024-11-17 12:41 | Emergency (ER) | payer MEDICAID ==
[~2024-11-17] VITALS: Ht 165.1 cm; Wt 48.8 kg
[~2024-11-17 12:41] MED LIST changes: +CARI1.5C PO; +LAMO200T10 PO; -LIT300C PO; +METF-436 PO; +NAPR-996 PO; +NICO-687 TOP; +QUET25TA36 PO; -QUET300T2 PO
[2024-11-17 13:04] LABS: BASOPHILS % (AUTO) 0.4 % (0-1); EOSINOPHILS % (AUTO) 0.5 % (0-6); HEMATOCRIT 43.3 % (35.0-45.0); HEMOGLOBIN 14.7 g/dl (12.0-16.0); LYMPHOCYTES # (AUTO) 1.4 X10'3 (1.1-4.8); LYMPHOCYTES % (AUTO) 25.4 % (21-51); MEAN CORPUSCULAR HEMOGLOBIN 32.8 PG (27.0-31.0); MEAN CORPUSCULAR VOLUME 96.4 FL (78-98); MEAN PLATELET VOLUME 7.7 FL (7.4-10.4); MONOCYTES # (AUTO) 0.4 X10'3 (0-0.9); MONOCYTES % (AUTO) 6.5 % (2-12); NEUTROPHILS # (AUTO) 3.8 X10'3 (1.8-7.7); NEUTROPHILS % (AUTO) 67.2 % (42-75); PLATELET COUNT 288 X10'3 (140-440); RED BLOOD COUNT 4.49 X10'6 (4.20-5.60); RED CELL DISTRIBUTION WIDTH 13.2 % (11.5-14.5); WHITE BLOOD COUNT 5.7 X10'3 (4.5-11.0)
[2024-11-17 13:20] LABS: APTT 27 SECONDS (22-32); PROTHROMBIN TIME 10.8 SECONDS (9.0-12.0)
[2024-11-17 13:24] VITALS: BP 202/108; PULSE 107; RESP 20; TEMP 98.2; O2SAT 99
[2024-11-17 13:38] LABS: ALBUMIN 4.1 G/DL (3.4-5.0); ANION GAP 9 (8-16); BLOOD UREA NITROGEN 9 MG/DL (7-18); BUN/CREATININE RATIO 9.7 (10.0-20.0); CALCIUM 9.5 MG/DL (8.5-10.1); CHLORIDE 104 MMOL/L (99-107); CREATININE 0.93 MG/DL (0.40-0.90); GLUCOSE 106 MG/DL (70-104); POTASSIUM 3.2 MMOL/L (3.5-5.1); SODIUM 141 MMOL/L (135-145); TOTAL CARBON DIOXIDE 28.4 MMOL/L (24-32); eCRCL 61 ML/MIN; eGFR 66 ML/MIN
[2024-11-17 15:06] LABS: BILIRUBIN,URINE NEGATIVE (Neg); CLARITY,URINE CLOUDY (Clear); COLOR,URINE YELLOW (Yellow); GLUCOSE, URINE NEGATIVE (Neg); KETONES,URINE NEGATIVE (Neg); LEUKOCYTE ESTERASE ,URINE NEGATIVE (Neg); NITRITES, URINE NEGATIVE (Neg); OCCULT BLOOD,URINE LARGE (Neg); PH,URINE 7.5 (4.8-8.0); PROTEIN,URINE TRACE mg/dl (Neg); UROBILINOGEN,URINE 0.2 E.U/dL (0.2-1.0)
[2024-11-17 15:15] LABS: UA COLLECTION TYPE NON-SPECIFIED
[2024-11-17 15:21] LABS: AMORPHOUS URATES 1+; BACTERIA,URINE FEW /HPF (Neg); RBC,URINE TNTC /HPF (0-2); SQUAMOUS EPITHELIAL CELL,UR MANY /LPF (FEW); WBC,URINE 0-4 /HPF (0-4)
[2024-11-17] MEDS: aspirin 81mg tab.chew PO ONE (16:58)
== END 2024-11-17 17:06 | disposition home or self-care (01) ==
LOC: ER 12:41
DX: R53.1 Weakness (principal); E03.9 Hypothyroidism, unspecified; F20.9 Schizophrenia, unspecified; F31.9 Bipolar disorder, unspecified; F12.90 Cannabis use, unspecified, uncomplicated; E11.9 Type 2 diabetes mellitus without complications; Z87.442 Personal history of urinary calculi; Z88.0 Allergy status to penicillin; Z90.49 Acquired absence of other specified parts of digestive tract
CPT/HCPCS: 36415; 70450; 71045; 80048; 81001; 82948; 85025; 85610; 85730; 93005; 99285